=== PATIENT | male | born 1975 | race Caucasian/White ===

== ENCOUNTER 2023-09-12 12:51 | Inpatient (IN) | payer MEDICAID, SELFPAY ==
[2023-09-12] VITALS (7 sets, daily range): BP systolic 115–177; BP diastolic 78–97; PULSE 64–123; RESP 14–18; TEMP 36.4–36.9; O2SAT 96–100; BMI 22.4
--- NOTE | 2023-09-12 13:07 | EX.ED.SAOD ---
HPI History of Present Illness Chief Complaint: Substance Abuse Detail of Chief Complaint: Resting detox for alcohol abuse. Informant: patient Onset/Context/Timing Onset: - (35 years) Context: Gradual Onset Timing: Continuous Associated Symptoms Associated Symptoms: Negative for vomiting* or diarrhea* Narrative Narrative: 48-year-old male history of alcohol abuse. Says he drinks at least a 12 pack a day if not more. He had history of alcohol abuse for around 35 years since he is been 13 years old. He is really never done inpatient detox. Last drinks were last night. He denies any recent illness. Prior similar symptoms: Yes Recent Illness/Hospitalization: No PFSH PFSH Home Medications NK 09/12/23 [History Last Taken Unknown] Social History Smoking Status: Never smoker ROS ROS ED ROS Narrative Denies recent illness. Review of Systems ROS Unobtainable: Denies due to encephalopathy Constitutional Constitutional ED: Denies chills or fever(s) Eyes Eyes: Denies blurry vision ENT ENT ED: Denies ear pain Cardiovascular Cardiovascular: Denies chest pain Respiratory/Chest Respiratory/Chest: Denies cough or dyspnea Gastrointestinal Gastrointestinal: Denies abdominal pain, constipation, diarrhea, melena, nausea or vomiting Genitourinary Genitourinary ED: Denies dysuria Musculoskeletal Musculoskeletal: Denies arthralgias Integumentary Denies abscess Neurologic Neurologic: Denies headache(s) Psychiatric Psychiatric: Denies anxiety Endocrine Endocrinology: Denies cold intolerance Hematologic/Lymphatic Hematologic/Lymphatic: Denies easy bleeding or easy bruising Allergic/Immunologic Allergic/Immunologic ED: Denies mouth swelling, tongue swelling or urticaria EXAM Physical Exam Narrative Exam Narrative: 48-year-old male no acute distress. Vital signs stable afebrile. H EENT exam unremarkable. Neck nontender. Lungs clear to auscultation bilaterally. Heart tachycardic no murmur. Abdomen soft nontender. Normal bowel sounds no peritoneal signs. Moving all 4 extremities. Calves are nontender without edema or cords. Neurologically is awake and alert with no focal motor deficits. Const Vital Signs: 09/12/23 12:52 Temperature 97.6 F L Temperature Source Temporal Pulse Rate 123 H Respiratory Rate 16 Blood Pressure 140/97 H Blood Pressure Mean 111 Pulse Ox 100 Oxygen Delivery Method Room Air Positive well nourished and well developed; Negative for obese, cachectic, contractures or unkempt General Appearance ED: well developed and NAD; Negative for unkempt, cachectic, contractures or pallor Nutritional Appearance: Negative for cachectic or obese HEENT Reports moist mucous membranes atraumatic; Negative for trauma or tenderness Eyes PERRL and EOMs intact bilaterally General Eye ED: Negative for pale conjunctiva or scleral icterus Neck no lymphadenopathy, supple and no JVD Thyroid: Negative for tender Lymph Lymphatic: no lymphadenopathy noted; Negative for lymphadenopathy Chest Wall inspection of chest normal and palpation of chest normal Chest: Negative for other Resp normal respiratory effort and clear to auscultation bilaterally Effort and Inspection: Negative for retractions Auscultation: Negative for rales, rhonchi or wheezes Cardio regular rhythm, S1 normal heart sound, S2 normal heart sound and no murmurs; Negative for regular rate Rate: tachycardic GI soft to palpation, non-tender, non-distended and no masses Inspection: Negative for abdominal distention Palpation: Negative for tender or guarding Bladder / Kidney Exam: No other Back/Spine no CVA tenderness General Back: Negative for CVA tenderness Cervical Spine: Negative for cervical spine tenderness Thoracic Spine / Upper Back: Negative for thoracic spinal tenderness Lumbar Spine / Lower Back: Negative for lumbar spinal tenderness Coccyx: Negative for swelling Neuro oriented x3 and CN's II-XII intact bilaterally Sensorium / Orientation: alert, oriented to person, oriented to place and oriented to time; Negative for confused, lethargic or stuporous Speech: speech normal Motor Exam: strength 5/5 throughout Psych mental status grossly normal and thought process normal Appearance: Negative for unkempt Attitude: No belligerent, No agitated and No aggressive Mood & Affect: Negative for depressed, anxious or tearful Skin General Skin Exam: Negative for jaundice or pallor Lesions: no lesions Rashes: no rashes Trauma: Negative for abrasion or laceration MDM MDM MDM Narrative Medical decision making narrative: 48-year-old male with a longstanding history of alcohol abuse requesting detox. Exam is benign other than mild tachycardia. Screening labs to be obtained. I will speak to the hospitalist about admission for detox. Exam patient doing well at 2:50 PM. I have already spoken to the hospitalist will be a MedSurg admit for detox. History & Record Review Discussion w/independent historian: Patient Lab Data Attestation: I reviewed the patient's lab results. Lab results narrative: This is a white count of 14.4. H&H is 16.8 and 49. Platelets 316. Electrolytes show a gap of 3 normal BUN and creatinine. Liver enzymes are unremarkable. Urine tox screen negative. Alcohol less is negative. Labs: Laboratory Results - last 24 hr 09/12/23 09/12/23 13:27 13:33 WBC 14.4 H RBC 5.20 Hgb 16.8 H Hct 49.5 MCV 95.2 H MCH 32.3 H MCHC 33.9 RDW Std Deviation 43.0 RDW Coeff of Madelaine 12.6 Plt Count 316 MPV 9.9 Immature Gran % (Auto) 0.600 Neut % (Auto) 77.9 H Lymph % (Auto) 11.9 L Taliaferro % (Auto) 8.1 Eos % (Auto) 1.0 Baso % (Auto) 0.5 Absolute Neuts (auto) 11.2 H Absolute Lymphs (auto) 1.72 Nucleated RBC % 0 Sodium 140 Potassium 3.6 Chloride 109 H Carbon Dioxide 28.0 Anion Gap 3 L BUN 11 Creatinine 0.82 Estim Creat Clear Calc 102.06 Est GFR (MDRD) Af Amer 127 Est GFR (MDRD) Non-Af 105 BUN/Creatinine Ratio 13.3 Glucose 72 L Calcium 9.3 Total Bilirubin 0.30 AST 21 ALT 48 Alkaline Phosphatase 75 Total Protein 7.5 Albumin 3.8 Globulin 3.7 Albumin/Globulin Ratio 1.0 Urine Opiates Screen NEGATIVE Urine Methadone Screen NEGATIVE Ur Barbiturates Screen NEGATIVE Ur Phencyclidine Scrn NEGATIVE Ur Amphetamines Screen NEGATIVE MDMA (Ecstasy) Screen NEGATIVE U Benzodiazepines Scrn NEGATIVE Urine Cocaine Screen NEGATIVE U Cannabinoids Screen NEGATIVE Ur Drug Screen Comment Ethyl Alcohol < 3.0 Discharge Plan Dx/Rx/DC Orders Clinical Impression: Admitted to alcohol detoxification center, Alcohol abuse Disposition Disposition: Acute Care Hospital [facility]
[2023-09-12 13:49] LABS: Absolute Lymphocyte Count 1.72 X10^3/uL (0.83-4.51); Absolute Neutrophil Count 11.2 X10^3/uL (2.0-7.7); Basophil# 0.07 X10^3/uL; Basophil% 0.5 % (0-1); Eosinophil# 0.14 X10^3/uL; Hematocrit 49.5 % (40-54); Hemoglobin 16.8 g/dL (13.0-16.5); Lymphocyte # 1.72 X10^3/ul (0.83-4.51); Lymphocyte % 11.9 % (19-41); Mean Corp Hgb Conc 33.9 g/dL (32-36); Mean Corpuscular Hgb 32.3 pg (27.0-32.0); Mean Corpuscular Volume 95.2 fL (80-94); Mean Platelet Vol. 9.9 fl (6.2-12.0); Monocyte# 1.17 X10^3/uL; Monocyte% 8.1 % (0-10); NRBC Flagged by Analyzer 0 % (0-5); Neutrophil # 11.24 X10^3/uL (2.7-7.7); Neutrophil % 77.9 % (47-70); Platelet Count 316 K/mm3 (150-450); RBC Distribution Width CV 12.6 % (11.6-14.6); White Blood Count 14.4 K/mm3 (4.4-11.0)
[2023-09-12 14:03] LABS: Amphetamine Urine VISTA NEGATIVE (<1000 ng/mL); Barbiturate Urine VISTA NEGATIVE (< 200 ng/mL); Benzodiazepine Urine VISTA NEGATIVE (< 200 ng/mL); Cocaine Urine VISTA NEGATIVE (< 300 ng/mL); Ecstacy Urine VISTA NEGATIVE (< 500 ng/mL); Methadone Urine VISTA NEGATIVE (< 300 ng/mL); PCP Urine VISTA NEGATIVE (< 25 ng/mL); THC Urine VISTA NEGATIVE (< 50 ng/mL); Vista UDS pH Range 6
[2023-09-12 14:12] LABS: AST(SGOT) 21 U/L (15-37); Alanine Aminotransfer ALT/SGPT 48 U/L (16-61); Albumin, Serum 3.8 g/dL (3.2-5.0); Alkaline Phosphatase 75 U/L (45-117); Anion Gap 3 (5-15); BUN 11 mg/dL (7-18); BUN/Creat Ratio 13.3 RATIO (10-20); Calcium,Total 9.3 mg/dL (8.5-10.1); Chloride 109 mmol/L (98-107); Creatinine, Serum 0.82 mg/dL (0.70-1.30); EST Glomerular Filtration Rate 105 mL/min (>60); Est Glom Filt Rate - Afr Amer 127 mL/min (>60); Estimated Creatinine Clearance 102.06 ml/min; Globulin 3.7 g/dL (2.2-4.2); Glucose 72 mg/dL (74-106); Potassium 3.6 mmol/L (3.5-5.1); Protein, Total 7.5 g/dL (6.4-8.2); Sodium Level 140 mmol/L (136-145)
[2023-09-12 14:23] LABS: Alcohol, Blood (Medical)-Serum < 3.0 mg/dL
--- NOTE | 2023-09-12 14:56 | NURSING ---
MED SURG DUSTY DETOX, ALCOHOL ABUSE
--- NOTE | 2023-09-12 15:05 | HP.PCM.HOS_ITS ---
HPI - General General Date of Admission: 09/12/23 Date of Service: 09/12/23 Chief Complaint: Alcohol use disorder HPI Narrative FLORIAN PEREIRA, is a 48 M who presented to [facility] ED on 09/12/2023 for alcohol detoxification. Patient seen at bedside in the ED. Sitting comfortably in bed, conversing normally, no acute distress. Patient reported generally feeling fatigued and off at this time. Reports mild anxiety, feelings of restlessness, nausea, mild tremor. Denies any palpitations. Denies any chest pain, shortness of breath, abdominal pain or discomfort. Patient states he drinks about 12 beers per day and has been drinking heavily for the last 30+ years. States he is currently on probation for a recent arrest related to his drinking and this prompted him to come in for alcohol detoxification. Patient has never been to rehab or gone through alcohol detox in the hospital. Denies any significant history of alcohol withdrawal. Denies any other drug use, is not a smoker. Patient otherwise denies any acute concerns at this time. [facility] Home Medications NK 09/12/23 [History Last Taken Unknown] Allergy/AdvReac Type Severity Reaction Status Date / Time No Known Allergies Allergy Verified 09/12/23 17:25 Social History Smoking Status: Current every day smoker tobacco type: cigarettes ROS Constitutional Constitutional: Reports fatigue and malaise; Denies change in weight, chills, fever(s) or weakness Eyes Eyes: Denies change in vision Cardiovascular Cardiovascular: Denies chest pain, dyspnea on exertion, edema, lightheadedness or rapid heart rate Respiratory/Chest Respiratory/Chest: Denies cough, shortness of breath at rest or wheezing Gastrointestinal Gastrointestinal: Reports nausea; Denies abdominal pain, constipation, diarrhea or vomiting Genitourinary Genitourinary: Denies dysuria Musculoskeletal Musculoskeletal: Denies arthralgias or back pain Neurologic Neurologic: Denies dizziness, focal weakness, headache(s), numbness or paresthes ias Psychiatric Psychiatric: Reports anxiety Vital Signs Vital Signs Vital Signs: 09/12/23 12:52 Temperature 97.6 F L Temperature Source Temporal Pulse Rate 123 H Respiratory Rate 16 Blood Pressure 140/97 H Blood Pressure Mean 111 Pulse Ox 100 Oxygen Delivery Method Room Air Weight Weight: 66.95 kg Body Mass Index (BMI) 22.4 Physical Exam Const alert and oriented x3 Constitutional Narrative: Pleasant middle-age male, somewhat unkempt appearance with bubba complexion, sitting comfortably in bed, conversing normally, no acute distress. General Appearance: cooperative and comfortable HEENT normocephalic, head/scalp atraumatic, hearing grossly normal bilaterally, nasal mucous membranes and turbinates normal and moist oral mucous membranes Eyes PERRL, EOMs intact bilaterally and conjunctivae normal Neck full ROM, no lymphadenopathy and supple Lymph Lymphatic: no lymphadenopathy noted Chest inspection of chest normal Resp normal respiratory effort, normal air movement, no use of accessory muscles and clear to auscultation bilaterally Cardio no murmurs and peripheral pulses 2+ throughout Cardio Narrative: Tachycardic, regular rhythm. GI normal to inspection, nondistended, normoactive bowel sounds, soft to palpation, non-tender and non-distended Back/Spine normal ROM Extremity normal to inspection, full ROM and no pedal edema Skin no rashes or lesions noted Neuro moves all extremities and no focal motor deficits Speech: speech normal Psych mental status grossly normal Results Lab / Micro Data 09/12/23 13:33 09/12/23 13:33 Labs: Laboratory Results - last 24 hr 09/12/23 13:27: Urine Opiates Screen NEGATIVE, Urine Methadone Screen NEGATIVE, Ur Barbiturates Screen NEGATIVE, Ur Phencyclidine Scrn NEGATIVE, Ur Amphetamines Screen NEGATIVE, MDMA (Ecstasy) Screen NEGATIVE, U Benzodiazepines Scrn NEGATI VE, Urine Cocaine Screen NEGATIVE, U Cannabinoids Screen NEGATIVE, Ur Drug Screen Comment 09/12/23 13:33: WBC 14.4 H, RBC 5.20, Hgb 16.8 H, Hct 49.5, MCV 95.2 H, MCH 32.3 H, MCHC 33.9, RDW Std Deviation 43.0, RDW Coeff of Madelaine 12.6, Plt Count 316, MPV 9.9, Immature Gran % (Auto) 0.600, Neut % (Auto) 77.9 H, Lymph % (Auto) 11.9 L, [place] % (Auto) 8.1, Eos % (Auto) 1.0, Baso % (Auto) 0.5, Absolute Neuts (auto) 11.2 H, Absolute Lymphs (auto) 1.72, Nucleated RBC % 0, Sodium 140, Potassium 3.6, Chloride 109 H, Carbon Dioxide 28.0, Anion Gap 3 L, BUN 11, Creatinine 0.82 , Estim Creat Clear Calc 102.06, Est GFR (MDRD) Af Amer 127, Est GFR (MDRD) Non- Af 105, BUN/Creatinine Ratio 13.3, Glucose 72 L, Calcium 9.3, Total Bilirubin 0.30, AST 21, ALT 48, Alkaline Phosphatase 75, Total Protein 7.5, Albumin 3.8, Globulin 3.7, Albumin/Globulin Ratio 1.0, Ethyl Alcohol < 3.0 Assessment & Plan Assessment/Plan (1) Alcohol abuse: PLAN: Plan Patient is a 48-year-old male who presented to [facility] ED on 09/12/2023 for alcohol detoxification. 1. Alcohol use disorder Reports drinking 12 beers per day. Extensive drinking history. No significant episodes of withdrawal that he notes. Last drink was night prior to admission. Never been through alcohol detoxification in the hospital or rehab center. Alcohol level of 0 on admit. Patient with sinus tachycardia to 120s, hypertension in the ED concerning for active withdrawal. ? Admit under inpatient status to [facility]. Case management consulted. Given patient's active withdrawal in the ED and his high risk of severe withdrawal, initiated patient on phenobarbital taper. As needed medications through alcohol withdrawal order set also ordered. 2. Leukocytosis WBC count 14 on admit. May be secondary to hemoconcentration versus mild elevation with acute stress state. Low concern for active infection. Patient afebrile, denies any recent infectious symptoms. ? Follow-up a.m. CBC. DVT prophylaxis: Lovenox CODE STATUS: Full code, verified Expected disposition: Home, 2 to 3 days Total clinical time spent by myself addressing the patient's medical issues, reviewing all the data, and collaborating with patient's care team: 55 minutes. Charges/Coding Visit Charges Inpatient E&M: 83893 Init Hosp L2
[2023-09-12] MEDS: hydrOXYzine PAM 25 MG Capsule 50 MG PO (17:48)
[2023-09-12] MEDS: Acetaminophen 325 MG Tablet 650 MG PO (17:48)
[2023-09-12] MEDS: Phenobarbital 32.4 MG Tablet PO ×2 (17:49→22:48)
[2023-09-13] VITALS (7 sets, daily range): BP systolic 120–144; BP diastolic 75–87; PULSE 88–116; RESP 13–18; TEMP 36.4–37.1; O2SAT 94–99
[2023-09-13] MEDS: Phenobarbital 32.4 MG Tablet PO ×6 (02:16→22:00)
[2023-09-13 06:20] LABS: Hematocrit 48.1 % (40-54); Mean Corp Hgb Conc 33.3 g/dL (32-36); Mean Corpuscular Hgb 32.3 pg (27.0-32.0); Mean Corpuscular Volume 97.2 fL (80-94); Mean Platelet Vol. 9.9 fl (6.2-12.0); Platelet Count 284 K/mm3 (150-450); RBC Distribution Width CV 12.8 % (11.6-14.6); Red Blood Count 4.95 M/mm3 (4.6-6.2); White Blood Count 11.5 K/mm3 (4.4-11.0)
[2023-09-13 07:17] LABS: Anion Gap 3 (5-15); BUN 11 mg/dL (7-18); BUN/Creat Ratio 14.3 RATIO (10-20); Calcium,Total 8.9 mg/dL (8.5-10.1); Chloride 105 mmol/L (98-107); Creatinine, Serum 0.77 mg/dL (0.70-1.30); EST Glomerular Filtration Rate 113 mL/min (>60); Est Glom Filt Rate - Afr Amer 137 mL/min (>60); Estimated Creatinine Clearance 108.29 ml/min; Glucose 156 mg/dL (74-106); Sodium Level 137 mmol/L (136-145)
[2023-09-13] MEDS: Folic Acid 1 MG Tablet PO (09:39)
[2023-09-13] MEDS: Thiamine Hydrochloride 100 MG Tablet PO (09:39)
[2023-09-13] MEDS: Enoxaparin 40 MG/0.4 ML Syringe SC (09:39)
--- NOTE | 2023-09-13 13:14 | PN_ITS ---
Subjective Subjective Patient seen and examined. He had no active complaints. HE denied any tremors or shakes or any other symptoms. Review of systems is otherwise negative. Objective Data Objective Data Vital Signs: Vital Signs Temp Pulse Resp BP Pulse Ox O2 Del Method 97.8 F 103 H 13 137/85 H 96 Room Air 09/13/23 10:00 09/13/23 10:00 09/13/23 10:00 09/13/23 10:00 09/13/23 10:00 09/13/23 10:00 Oxygen Delivery Method Room Air Weight: 147 lb 1 oz Body Mass Index (BMI) 22.4 Intake & Output: Intake and Output for Last 24 Hours 09/11/23 09/12/23 09/13/23 23:59 23:59 23:59 Intake Total 800 / 800 Balance 800 / 800 Lab / Micro Data 09/13/23 05:42 09/13/23 05:42 Labs: Laboratory Results - last 24 hr 09/12/23 13:27: Urine Opiates Screen NEGATIVE, Urine Methadone Screen NEGATIVE, Ur Barbiturates Screen NEGATIVE, Ur Phencyclidine Scrn NEGATIVE, Ur Amphetamines Screen NEGATIVE, MDMA (Ecstasy) Screen NEGATIVE, U Benzodiazepines Scrn NEGATIVE, Urine Cocaine Screen NEGATIVE, U Cannabinoids Screen NEGATIVE, Ur Drug Screen Comment 09/12/23 13:33: WBC 14.4 H, RBC 5.20, Hgb 16.8 H, Hct 49.5, MCV 95.2 H, MCH 32.3 H, MCHC 33.9, RDW Std Deviation 43.0, RDW Coeff of Madelaine 12.6, Plt Count 316, MPV 9.9, Immature Gran % (Auto) 0.600, Neut % (Auto) 77.9 H, Lymph % (Auto) 11.9 L, [place] % (Auto) 8.1, Eos % (Auto) 1.0, Baso % (Auto) 0.5, Absolute Neuts (auto) 11.2 H, Absolute Lymphs (auto) 1.72, Nucleated RBC % 0, Sodium 140, Potassium 3.6, Chloride 109 H, Carbon Dioxide 28.0, Anion Gap 3 L, BUN 11, Creatinine 0.82, Estim Creat Clear Calc 102.06, Est GFR (MDRD) Af Amer 127, Est GFR (MDRD) Non-Af 105, BUN/Creatinine Ratio 13.3, Glucose 72 L, Calcium 9.3, Total Bilirubin 0.30, AST 21, ALT 48, Alkaline Phosphatase 75, Total Protein 7.5, Albumin 3.8, Globulin 3.7, Albumin/Globulin Ratio 1.0, Ethyl Alcohol < 3.0 09/13/23 05:42: WBC 11.5 H, RBC 4.95, Hgb 16.0, Hct 48.1, MCV 97.2 H, MCH 32.3 H , MCHC 33.3, RDW Std Deviation 45.0 H, RDW Coeff of Madelaine 12.8, Plt Count 284, MPV 9.9, Sodium 137, Potassium 4.0, Chloride 105, Carbon Dioxide 29.0, Anion Gap 3 L , BUN 11, Creatinine 0.77, Estim Creat Clear Calc 108.29, Est GFR (MDRD) Af Amer 137, Est GFR (MDRD) Non-Af 113, BUN/Creatinine Ratio 14.3, Glucose 156 H, Calcium 8.9 Physical Exam Const alert, oriented x3 and no apparent distress General Appearance: cooperative HEENT normocephalic, head/scalp atraumatic and moist oral mucous membranes Eyes PERRL and EOMs intact bilaterally Neck no lymphadenopathy, supple and no JVD Lymph Lymphatic: no lymphadenopathy noted and no lymphedema noted Resp normal respiratory effort, normal air movement and clear to auscultation bilaterally Cardio regular rate, regular rhythm, S1 normal heart sound, S2 normal heart sound and no murmurs GI normal to inspection, nondistended, normoactive bowel sounds, soft to palpation and non-tender Extremity normal capillary refill, no clubbing, cyanosis or edema and no calf tenderness General Extremity: no tenderness to palpation of joints or extremities Neuro CN's II-XII intact bilaterally, no focal motor deficits, no sensory deficits noted and deep tendon reflexes 2+ bilaterally Motor Exam: general weakness Psych thought process normal, cooperative and affect normal Appearance: appropriate Assessment & Plan Assessment/Plan (1) Admitted to alcohol detoxification center: PLAN: Plan #Acute alcohol withdrawal * On alcohol withdrawal protocol with phenobarbital. * On thiamine, folic acid and Multivite's. * Adjunctive meds for symptomatic relief. * Monitor CIWA score. * * DVT prophylaxis: Low risk. Encouraged to ambulate. Disposition: Patient states he is currently homeless and needs help to get somewhere to stay. He is interested in going to an outpatient detox program. Case management on board. Charges/Coding Visit Charges Inpatient E&M: 08314 Subs Hosp L2
[2023-09-13] MEDS: hydrOXYzine PAM 25 MG Capsule 50 MG PO (14:22)
[2023-09-13] MEDS: Acetaminophen 325 MG Tablet 650 MG PO (18:48)
[2023-09-13] MEDS: Gabapentin 300 MG Capsule PO (22:00)
[2023-09-14 02:53] VITALS: BP 139/83; PULSE 96; RESP 18; TEMP 36.3; O2SAT 97
[2023-09-14] MEDS: hydrOXYzine PAM 25 MG Capsule 50 MG PO ×4 (02:55→20:13)
[2023-09-14] MEDS: Phenobarbital 32.4 MG Tablet PO ×6 (02:56→21:45)
[2023-09-14 05:54] VITALS: BP 135/82; PULSE 102; RESP 18; TEMP 36.3; O2SAT 97
[2023-09-14] MEDS: Gabapentin 300 MG Capsule PO ×2 (05:56→17:50)
[2023-09-14 06:45] VITALS: O2SAT 97
[2023-09-14 09:23] VITALS: BP 146/98; PULSE 110; RESP 18; TEMP 36.3; O2SAT 99
[2023-09-14] MEDS: Folic Acid 1 MG Tablet PO (09:29)
[2023-09-14] MEDS: Thiamine Hydrochloride 100 MG Tablet PO (09:29)
--- NOTE | 2023-09-14 10:49 | PCM.PROGNOTE ---
Subjective Subjective Patient seen and examined. He feels well. He has no active complaints and review of systems otherwise negative. He is a bit tachycardic today but otherwise has no complaints. Objective Data Objective Data Vital Signs: Vital Signs Temp Pulse Resp BP Pulse Ox O2 Del Method 97.3 F L 110 H 18 146/98 H 99 Room Air 09/14/23 09:23 09/14/23 09:23 09/14/23 09:23 09/14/23 09:23 09/14/23 09:23 09/14/23 09:23 Oxygen Delivery Method Room Air Weight: 147 lb 1 oz Body Mass Index (BMI) 22.4 Intake & Output: Intake and Output for Last 24 Hours 09/12/23 09/13/23 09/14/23 23:59 23:59 23:59 Intake Total 1400 / 1400 300 / 300 Balance 310 1400 / 1400 300 / 300 Lab / Micro Data 09/13/23 05:42 09/13/23 05:42 Physical Exam Const alert, oriented x3 and no apparent distress General Appearance: cooperative and comfortable HEENT normocephalic, head/scalp atraumatic, hearing grossly normal bilaterally, nasal mucous membranes and turbinates normal and moist oral mucous membranes Eyes PERRL, EOMs intact bilaterally and conjunctivae normal Neck full ROM, no lymphadenopathy, supple and no JVD Lymph Lymphatic: no lymphadenopathy noted and no lymphedema noted Chest inspection of chest normal Resp normal respiratory effort, normal air movement, no use of accessory muscles and clear to auscultation bilaterally Cardio regular rhythm, S1 normal heart sound, S2 normal heart sound, no murmurs and peripheral pulses 2+ throughout Cardio Narrative: Tachycardic, regular rhythm. Peripheral Pulses: pulses 2+ throughout GI normal to inspection, nondistended, normoactive bowel sounds, soft to palpation, non-tender and non-distended Back/Spine normal ROM Extremity normal to inspection, full ROM, normal capillary refill, no clubbing, cyanosis or edema, no calf tenderness and no pedal edema General Extremity: no tenderness to palpation of joints or extremities Skin no rashes or lesions noted Neuro CN's II-XII intact bilaterally, moves all extremities, no focal motor deficits, no sensory deficits noted and deep tendon reflexes 2+ bilaterally Speech: speech normal Motor Exam: general weakness Psych mental status grossly normal, thought process normal, cooperative and affect normal Appearance: appropriate Assessment & Plan Assessment/Plan (1) Admitted to alcohol detoxification center: PLAN: Plan #Acute alcohol withdrawal On alcohol withdrawal protocol with phenobarbital. On thiamine, folic acid and Multivite's. Adjunctive meds for symptomatic relief. Monitor CIWA score. DVT prophylaxis: Low risk. Encouraged to ambulate. Disposition: now agreeable to going to an inpatient detox and rehab facility. To be discharged on Saturday. Charges/Coding Visit Charges Inpatient E&M: 95513 Subs Hosp L2
--- NOTE | 2023-09-14 11:54 | NURSING ---
pt out in hallway verbally yelling and using profanity at staff. pt verbally descalated with guidance and pt states root cause was his meal tray not being correct. said nurse assisted pt in picking out menu choices again and meal tray of pt choice phoned back down. pt appologizes. protection officer Yoan up to floor as well. Pt currently cooperative.
[2023-09-14 14:45] VITALS: BP 137/82; PULSE 111; RESP 18; TEMP 36.6; O2SAT 97
--- NOTE | 2023-09-14 18:27 | ADDICTION ---
Pt was met with for Addiction Medicine RAMP assessment and screening for residential treatment at [facility] w/David. Pt appears to meet ASAM criteria for follow up w/a residential 3.5LoC. Pt is at extremely high risk of relapse w/out clinical Ix, 24hr supervision, and full milieu of residential services. Pt reports he is homeless and has been unable to stop drinking more than a twelve pack a day of Budlight with occasional crack smoking. Pt presented as cooperative and apologetic for his temper earlier. Pt states he is overwhelmed with stressors related to his socioeconomic risk factors and the status of his one month old daughter Sherry who is in the custody of a family member per Children Services order. Pt states he is willing and motivated to engage in residential at [facility]. Pt will be transported to [facility] via [facility] [employer] [facility] on Saturday09/16/23.
[2023-09-14 21:43] VITALS: BP 137/78; PULSE 94; RESP 18; TEMP 36.5; O2SAT 97
[2023-09-14] MEDS: traZODone 100 MG Tablet PO (21:47)
[2023-09-15 02:15] VITALS: BP 142/85; PULSE 103; RESP 18; TEMP 36.4; O2SAT 99
[2023-09-15] MEDS: Phenobarbital 32.4 MG Tablet PO ×4 (02:17→20:27)
[2023-09-15] MEDS: Gabapentin 300 MG Capsule PO ×2 (02:17→09:54)
[2023-09-15] MEDS: Acetaminophen 325 MG Tablet 650 MG PO (02:17)
[2023-09-15] MEDS: hydrOXYzine PAM 25 MG Capsule 50 MG PO ×2 (06:35→15:25)
[2023-09-15 07:52] VITALS: O2SAT 97
[2023-09-15] MEDS: Folic Acid 1 MG Tablet PO (09:25)
[2023-09-15] MEDS: Thiamine Hydrochloride 100 MG Tablet PO (09:25)
[2023-09-15 09:30] VITALS: BP 154/89; PULSE 110; RESP 16; TEMP 36.9; O2SAT 97
--- NOTE | 2023-09-15 10:15 | PN_ITS ---
Subjective Subjective Patient seen and examined. He had no active complaints and had an uneventful night. Review of systems is otherwise negative. He has remained hemodynamically stable. Objective Data Objective Data Vital Signs: Vital Signs Temp Pulse Resp BP Pulse Ox O2 Del Method 98.5 F 110 H 16 154/89 H 97 Room Air 09/15/23 09:30 09/15/23 09:30 09/15/23 09:30 09/15/23 09:30 09/15/23 09:30 09/15/23 09:30 Oxygen Delivery Method Room Air Weight: 147 lb 1 oz Body Mass Index (BMI) 22.4 Intake & Output: Intake and Output for Last 24 Hours 09/13/23 09/14/23 09/15/23 23:59 23:59 23:59 Intake Total 1400 / 1400 300 / 300 Balance 1400 / 1400 300 / 300 Lab / Micro Data 09/13/23 05:42 09/13/23 05:42 Physical Exam Const alert, oriented x3 and no apparent distress Constitutional Narrative: P General Appearance: cooperative and comfortable HEENT normocephalic, head/scalp atraumatic, hearing grossly normal bilaterally, nasal mucous membranes and turbinates normal and moist oral mucous membranes Eyes PERRL, EOMs intact bilaterally and conjunctivae normal Neck full ROM, no lymphadenopathy, supple and no JVD Lymph Lymphatic: no lymphadenopathy noted and no lymphedema noted Chest inspection of chest normal Resp normal respiratory effort, normal air movement, no use of accessory muscles and clear to auscultation bilaterally Cardio regular rhythm, S1 normal heart sound, S2 normal heart sound, no murmurs and peripheral pulses 2+ throughout Cardio Narrative: Tachycardic, regular rhythm. Peripheral Pulses: pulses 2+ throughout GI normal to inspection, nondistended, normoactive bowel sounds, soft to palpation, non-tender and non-distended Back/Spine normal ROM Extremity normal to inspection, full ROM, normal capillary refill, no clubbing, cyanosis or edema, no calf tenderness and no pedal edema General Extremity: no tenderness to palpation of joints or extremities Skin no rashes or lesions noted Neuro CN's II-XII intact bilaterally, moves all extremities, no focal motor deficits, no sensory deficits noted and deep tendon reflexes 2+ bilaterally Speech: speech normal Motor Exam: general weakness Psych mental status grossly normal, thought process normal, cooperative and affect normal Appearance: appropriate Assessment & Plan Assessment/Plan (1) Admitted to alcohol detoxification center: PLAN: Plan #Acute alcohol withdrawal * On alcohol withdrawal protocol with phenobarbital. * On thiamine, folic acid and Multivite's. * Adjunctive meds for symptomatic relief. * Monitor CIWA score. * * DVT prophylaxis: Low risk. Encouraged to ambulate. Disposition: now agreeable to going to an inpatient detox and rehab facility. To be discharged on Saturday. Charges/Coding Visit Charges Inpatient E&M: 97711 Subs Hosp L2
[2023-09-15 15:28] VITALS: BP 151/93; PULSE 108; RESP 16; TEMP 36.6; O2SAT 98
[2023-09-15 20:25] VITALS: BP 144/79; PULSE 100; RESP 18; TEMP 36.5; O2SAT 98
[2023-09-15] MEDS: traZODone 100 MG Tablet PO (22:32)
[2023-09-16 03:00] VITALS: BP 130/74; PULSE 102; RESP 18; TEMP 36.8; O2SAT 96
[2023-09-16] MEDS: Phenobarbital 32.4 MG Tablet PO ×2 (03:06→08:24)
[2023-09-16] MEDS: Thiamine Hydrochloride 100 MG Tablet PO (08:24)
[2023-09-16] MEDS: Folic Acid 1 MG Tablet PO (08:24)
[2023-09-16 08:28] VITALS: BP 150/81; PULSE 109; RESP 16; TEMP 36.4; O2SAT 99
[2023-09-16] MEDS: Gabapentin 300 MG Capsule PO (08:35)
--- NOTE | 2023-09-16 10:06 | DCINST_ITS ---
Discharge Instructions Diet Discharge Diet: Low fat / Low cholesterol Activity Discharge Activity: Return to Normal Activity Weight Bearing Status: Weight bearing as tolerated Dressing / Incision Call your doctor if you observe: Fever of 101 or Higher, Shortness of breath, Dizziness, Swelling in the ankles, Chest pain and Increased palpitations (irregular heartbeat) Follow Up Care Test Results: Test results from this visit will be discussed in further detail at your follow- up appointment, if applicable. Discharge Plan Admission Admit Date/Time: 09/12/23 15:08 Primary Reason for Your Visit: acute alcohol withdrawal Attending Provider: Loretta Lemon Primary Care Provider: Care Physician,No Primary Consulting Providers: Too Daly Instructions Patient Instructions: Alcohol Addiction, Alcohol Withdrawal: What to Expect Discharge Orders/Prescriptions Prescriptions: No Action NK Referrals / Follow Up: Care Physician,No Primary [Primary Care Provider] - NOT,DEFINED [Non-Staff] - Disposition Disposition (needs filled in before D/C Order can be placed): Home, Self Care
--- NOTE | 2023-09-16 10:06 | DS.PCM_ITS ---
Providers Date of Admission: 09/12/23 Date of Discharge: 09/16/23 Primary Care Physician: No Primary Care Phys Reason For Visit: ALCOHOL ABUSE Diagnosis Discharge Diagnosis (1) Admitted to alcohol detoxification center: Status: Acute Plan #Acute alcohol withdrawal * On alcohol withdrawal protocol with phenobarbital. * On thiamine, folic acid and Multivite's. * Adjunctive meds for symptomatic relief. * Monitor CIWA score. * * DVT prophylaxis: Low risk. Encouraged to ambulate. Disposition: now agreeable to going to an inpatient detox and rehab facility. To be discharged on Saturday. Medications at Discharge Home Medications NK 09/12/23 Hospital Course Operations None Procedures None Summary of Care Provided Minutes Spent on Discharge: 50 Hospital Course: Patient is a 48-year-old male with past medical history as outlined was admitted through the ED on 09/12/2023 for acute alcohol withdrawal. He complained of mild anxiety, restlessness, nausea and mild tremors. He drank about 12 beers a day and had been drinking heavily for about 8 years prior to admission. Patient said he was on probation for recent arrest related to his drinking and that had prompted his coming in for acute alcohol detox. He was admitted and managed for acute alcohol detox. He was placed on alcohol withdrawal protocol with phenobarbital. He tolerated the 3-day detox process. Patient initially wanted to do an outpatient treatment but changed his mind and decided to do inpatient and so was discharged [facility] on 10/06/2023. He is to follow-up with his PCP within 1 to 2 weeks. Patient seen and examined prior to discharge. He had no active complaints and had an uneventful night. Review of systems otherwise negative. Labs and vitals reviewed. Home medications reviewed and reconciled. Physical Exam Const alert, oriented x3 and no apparent distress General Appearance: cooperative and comfortable HEENT normocephalic, head/scalp atraumatic, hearing grossly normal bilaterally, nasal mucous membranes and turbinates normal and moist oral mucous membranes Eyes PERRL, EOMs intact bilaterally and conjunctivae normal Neck full ROM, no lymphadenopathy, supple and no JVD Lymph Lymphatic: no lymphadenopathy noted and no lymphedema noted Chest inspection of chest normal Resp normal respiratory effort, normal air movement, no use of accessory muscles and clear to auscultation bilaterally Cardio regular rate, regular rhythm, S1 normal heart sound, S2 normal heart sound, no murmurs and peripheral pulses 2+ throughout Peripheral Pulses: pulses 2+ throughout GI normal to inspection, nondistended, normoactive bowel sounds, soft to palpation, non-tender and non-distended Back/Spine normal ROM Extremity normal to inspection, full ROM, normal capillary refill, no clubbing, cyanosis or edema, no calf tenderness and no pedal edema General Extremity: no tenderness to palpation of joints or extremities Skin no rashes or lesions noted Neuro oriented x3, CN's II-XII intact bilaterally, moves all extremities, no focal motor deficits, no sensory deficits noted and deep tendon reflexes 2+ bilaterally Speech: speech normal Motor Exam: general weakness Psych mental status grossly normal, thought process normal, cooperative and affect normal Appearance: appropriate Weight / BMI Weight Weight: 147 lb 1 oz Body Mass Index (BMI) 22.4 ABG / Lab / Microbiology Data 09/13/23 05:42 09/13/23 05:42 D/C Instructions Discharge Diet: Low fat / Low cholesterol Discharge Activity: Return to Normal Activity Weight Bearing Status: Weight bearing as tolerated Call your doctor if you observe: Fever of 101 or Higher, Shortness of breath, Dizziness, Swelling in the ankles, Chest pain and Increased palpitations (irregular heartbeat) Meaningful Use Info Meaningful Use Diagnoses (Choose all that apply): None applicable Discharge Plan Admission Admit Date/Time: 09/12/23 15:08 Primary Reason for Your Visit: acute alcohol withdrawal Attending Provider: Loretta Lemon Primary Care Provider: Care Physician,No Primary Consulting Providers: Too Daly Instructions Patient Instructions: Alcohol Addiction, Alcohol Withdrawal: What to Expect Discharge Orders/Prescriptions Prescriptions: No Action NK Referrals / Follow Up: Care Physician,No Primary [Primary Care Provider] - NOT,DEFINED [Non-Staff] - Disposition Disposition (needs filled in before D/C Order can be placed): Home, Self Care Charges/Coding Visit Charges Inpatient E&M: 99211 Disch Hosp >30min
--- NOTE | 2023-09-16 10:09 | PHA.DC.MR.R ---
Pharm[facility] [place] Med Reconciliation Pharmacy Service has performed discharge medication reconciliation for this patient. The patient's discharge medication list was reviewed for discrepancies and discrepancies were resolved. Medications at Discharge Home Medications NK 09/12/23
== END 2023-09-16 12:15 | disposition home or self-care (01) | DRG 897 ==
LOC: ED 13:29 → MS3 09-13 07:23
PROVIDERS: Admitting Provider Hospitalist; Emergency Provider Emergency Medicine; Visit Provider Student in an Organized Health Care Education/Training Program
DX: F10.239 Alcohol dependence with withdrawal, unspecified (principal); F17.210 Nicotine dependence, cigarettes, uncomplicated; Y90.0 Blood alcohol level of less than 20 mg/100 ml
CPT/HCPCS: 36415; 80048; 80053; 80307; 82077; 85025; 85027; 94668; 99284; A4216